=== PATIENT | female | born 1995 | race African-American/Black ===

== ENCOUNTER 2020-06-07 23:08 | Emergency (ER) | payer OTHER ==
[~2020-06-07] VITALS: Ht 188 cm; Wt 81.0 kg
[2020-06-08 00:10] VITALS: BP 134/76
== END 2020-06-08 00:23 | disposition home or self-care (01) ==
LOC: ER 23:08
DX: H69.81 Other specified disorders of Eustachian tube, right ear (principal); H93.11 Tinnitus, right ear
CPT/HCPCS: 99281